=== PATIENT | male | born 1950 | race Caucasian/White ===

== ENCOUNTER 2020-04-12 04:10 | Inpatient (IN) | payer OTHER, MEDICAID ==
[2020-04-12] VITALS (16 sets, daily range): BP systolic 107–142
[~2020-04-12] VITALS: Ht 190.5 cm; Wt 73.6 kg
[2020-04-12 05:20] LABS: BASOPHILS % (AUTO) 0.2 % (0.0-2.0); HEMATOCRIT 27.2 % (36-54); HEMOGLOBIN 9.2 g/dL (14.0-18.0); LYMPHOCYTES # (AUTO) 0.4 K/uL (1.0-5.5); LYMPHOCYTES % (AUTO) 3.7 % (20.5-51.5); MEAN CORPUSCULAR HEMOGLOBIN 31 pg (27-31); MEAN CORPUSCULAR HGB CONC 34 % (32-36); MEAN CORPUSCULAR VOLUME 92 fL (79.0-98.0); MONOCYTES # (AUTO) 0.6 K/uL (0.0-1.0); MONOCYTES % (AUTO) 5.7 % (1.7-9.3); NEUTROPHILS # (AUTO) 9.3 K/uL (1.8-7.7); NEUTROPHILS % (AUTO) 90.4 % (40.0-70.0); PLATELET COUNT (AUTO) 150 K/uL (130-430); RED BLOOD CELL COUNT(AUTO) 2.96 MIL/uL (4.2-6.2); RED CELL DISTRIBUTION WIDTH 14.4 % (9.0-15.0); WHITE BLOOD COUNT (AUTO) 10.3 K/uL (4.8-10.8)
[2020-04-12 05:24] LABS: CALCIUM 9.2 mg/dL (8.4-11.0); POTASSIUM 5.1 mmol/L (3.5-5.1)
[2020-04-12 05:31] LABS: ALBUMIN 2.7 g/dL (3.4-4.8); TOTAL BILIRUBIN 0.8 mg/dL (0.0-1.0)
[2020-04-12 05:32] LABS: CREATININE 9.6 mg/dL (0.55-1.30)
[2020-04-12] MEDS ORDERED: D10W 1,000 ML IV SCH (05:45)
[2020-04-12] MEDS ORDERED: DEXTROSE 50% JECT 50 ML DISP.SYRIN IVP ONE ×3 (05:45→10:45)
[2020-04-12] MEDS ORDERED: FLUT16SP16 NS (06:10)
[2020-04-12] MEDS ORDERED: DOCU-144 PO (06:10)
[2020-04-12] MEDS ORDERED: PREDEYE1% EACH EYE (06:10)
[2020-04-12] MEDS ORDERED: METO-290 PO (06:10)
[2020-04-12] MEDS ORDERED: ACET-2165 PO (06:10)
[2020-04-12] MEDS ORDERED: CILO100T PO (06:10)
[2020-04-12] MEDS ORDERED: FOLI0.8T42 PO (06:10)
[2020-04-12] MEDS ORDERED: THOR25 PO (06:10)
[2020-04-12] MEDS ORDERED: LIP40 PO (06:10)
[2020-04-12] MEDS ORDERED: PROC5TAB12 PO (06:10)
[2020-04-12] MEDS ORDERED: FURO80TA86 PO (06:10)
[2020-04-12] MEDS ORDERED: NITSL SL (06:10)
[2020-04-12] MEDS ORDERED: AMLO5TAB4 PO (06:10)
[2020-04-12] MEDS ORDERED: PSYL1PAC8 PO (06:10)
[2020-04-12] MEDS ORDERED: ASPI-1153 PO (06:10)
[2020-04-12] MEDS ORDERED: CAT.1 PO (06:10)
[2020-04-12] MEDS ORDERED: CALC667T6 PO (06:10)
[2020-04-12] MEDS ORDERED: CARV25TA55 PO ×2 (06:10)
[2020-04-12] MEDS ORDERED: GABA-531 PO (06:10)
[2020-04-12] MEDS ORDERED: BISA10SU77 RC (06:10)
[2020-04-12] MEDS ORDERED: APIX5TAB4 PO (06:10)
[2020-04-12] MEDS ORDERED: DEXTROSE 50% JECT 50 ML DISP.SYRIN ONE ×3 (10:36→12:41)
[2020-04-12] MEDS ORDERED: D5W 1,000 ML IV PRN (10:39)
[2020-04-12] MEDS ORDERED: GLUCOSE 15 GM GEL (in 37.5 GM TUBE) PO PRN (10:45)
[2020-04-12] MEDS: DEXTROSE 50% JECT 50 ML DISP.SYRIN IVP PRN ×4 (12:24→17:13)
[2020-04-12] MEDS ORDERED: HYDROCORTISONE SOD SUCC 100 MG/2 ML VIAL IVP SCH ×2 (14:45→18:00)
[2020-04-12] MEDS ORDERED: HYDROCORTISONE SOD SUCC 100 MG/2 ML VIAL IVP ONE (15:00)
[2020-04-12] MEDS ORDERED: HYDROCORTISONE SOD SUCC 100 MG/2 ML VIAL ONE (15:17)
[2020-04-12] MEDS ORDERED: methylPREDNISolone SOD SUCC/PF 62.5 MG/ML VIAL IVP ONE (15:30)
[2020-04-12] MEDS: D10W 1,000 ML IV SCH ×2 (17:45→18:45)
[2020-04-12] MEDS ORDERED: methylPREDNISolone SOD SUCC/PF 62.5 MG/ML VIAL IVP SCH ×2 (18:00→22:00)
[2020-04-12 21:55] LABS: ALBUMIN 2.6 g/dL (3.4-4.8); BILIRUBIN,DIRECT 0.4 mg/dL (0.0-0.3); TOTAL BILIRUBIN 0.7 mg/dL (0.0-1.0)
[2020-04-13] VITALS (17 sets, daily range): BP systolic 110–158
[2020-04-13] MEDS ORDERED: HYDROCORTISONE SOD SUCC 100 MG/2 ML VIAL IVP SCH
[2020-04-13] MEDS ORDERED: methylPREDNISolone SOD SUCC/PF 62.5 MG/ML VIAL IVP SCH
[2020-04-13 06:25] LABS: CALCIUM 8.9 mg/dL (8.4-11.0); CREATININE 6.4 mg/dL (0.55-1.30); PHOSPHORUS 4.8 mg/dL (2.7-4.5); POTASSIUM 5.1 mmol/L (3.5-5.1); THYROID STIMULATING HORMONE 0.3 uIu/mL (0.36-3.74)
[2020-04-13 07:35] LABS: HEMATOCRIT 28.2 % (36-54); HEMOGLOBIN 9.4 g/dL (14.0-18.0); LYMPHOCYTES # (AUTO) 0.2 K/uL (1.0-5.5); LYMPHOCYTES % (AUTO) 2.1 % (20.5-51.5); MEAN CORPUSCULAR HEMOGLOBIN 31 pg (27-31); MEAN CORPUSCULAR HGB CONC 34 % (32-36); MEAN CORPUSCULAR VOLUME 91 fL (79.0-98.0); MONOCYTES % (AUTO) 0.6 % (1.7-9.3); NEUTROPHILS # (AUTO) 7.3 K/uL (1.8-7.7); NEUTROPHILS % (AUTO) 97.3 % (40.0-70.0); PLATELET COUNT (AUTO) 164 K/uL (130-430); RED BLOOD CELL COUNT(AUTO) 3.09 MIL/uL (4.2-6.2); RED CELL DISTRIBUTION WIDTH 14.2 % (9.0-15.0)
[2020-04-13 07:58] LABS: WHITE BLOOD COUNT (AUTO) 7.5 K/uL (4.8-10.8)
[2020-04-13] MEDS: NACL 0.9% 1,000 ML IV SCH (08:00)
[2020-04-13] MEDS: EPOETIN ALFA 10,000 UNITS/ML VIAL SUBCUT SCH (08:08)
[2020-04-13] MEDS ORDERED: INSULIN Lispro 100 UNITS/ML VIAL (humaLOG) SUBCUT ONE (09:45)
[2020-04-13] MEDS ORDERED: DEXTROSE 50% JECT 50 ML DISP.SYRIN IVP PRN (18:30)
[2020-04-13] MEDS: INSULIN LISPRO SLIDING SCALE 100 UNITS/ML VIAL (humaLOG) SUBCUT PRN (21:11)
[2020-04-14 00:10] VITALS: BP_SYST 145
[2020-04-14] MEDS: NACL 0.9% 1,000 ML IV SCH (00:30)
[2020-04-14] MEDS: INSULIN LISPRO SLIDING SCALE 100 UNITS/ML VIAL (humaLOG) SUBCUT PRN ×5 (03:37→21:34)
[2020-04-14 05:07] LABS: HEMOGLOBIN A1C 5.3 % (4.8-5.6)
[2020-04-14 07:00] VITALS: BP_SYST 132
[2020-04-14 08:00] VITALS: BP_SYST 132
[2020-04-14 08:06] LABS: CORTISOL (SERUM) 33.6 ug/dL (.)
[2020-04-14 10:08] LABS: CALCIUM 9.1 mg/dL (8.4-11.0); POTASSIUM 5.5 mmol/L (3.5-5.1)
[2020-04-14 10:16] LABS: CREATININE 8.19 mg/dL (0.55-1.30)
[2020-04-14 11:36] VITALS: BP_SYST 142
[2020-04-14] MEDS: NORMAL SALINE 5 ML DISP.SYRIN IVF SCH ×2 (14:00→21:32)
[2020-04-14 15:38] VITALS: BP_SYST 156
[2020-04-14 20:00] VITALS: BP_SYST 132
[2020-04-15 00:58] VITALS: BP_SYST 148
[2020-04-15] MEDS: NORMAL SALINE 5 ML DISP.SYRIN IVF SCH ×3 (06:00→20:51)
[2020-04-15 06:27] LABS: BASOPHILS % (AUTO) 0.1 % (0.0-2.0); EOSINOPHILS # (AUTO) 0.1 K/uL (0.0-0.4); EOSINOPHILS % (AUTO) 1.6 % (0.0-4.0); HEMATOCRIT 31.2 % (36-54); HEMOGLOBIN 10.6 g/dL (14.0-18.0); LYMPHOCYTES # (AUTO) 0.5 K/uL (1.0-5.5); MEAN CORPUSCULAR HEMOGLOBIN 31 pg (27-31); MEAN CORPUSCULAR HGB CONC 34 % (32-36); MEAN CORPUSCULAR VOLUME 90 fL (79.0-98.0); MONOCYTES # (AUTO) 0.9 K/uL (0.0-1.0); MONOCYTES % (AUTO) 11.7 % (1.7-9.3); NEUTROPHILS % (AUTO) 79.6 % (40.0-70.0); PLATELET COUNT (AUTO) 179 K/uL (130-430); RED BLOOD CELL COUNT(AUTO) 3.46 MIL/uL (4.2-6.2); RED CELL DISTRIBUTION WIDTH 13.9 % (9.0-15.0); WHITE BLOOD COUNT (AUTO) 7.5 K/uL (4.8-10.8)
[2020-04-15 07:33] LABS: CALCIUM 8.8 mg/dL (8.4-11.0); CREATININE 6.69 mg/dL (0.55-1.30); PHOSPHORUS 5.2 mg/dL (2.7-4.5); POTASSIUM 5.4 mmol/L (3.5-5.1)
[2020-04-15 08:00] VITALS: BP_SYST 163
[2020-04-15] MEDS ORDERED: SODIUM POLYSTYRENE SULFONATE 15 GM/60 ML UDBTL PO ONE ×2 (10:30→14:30)
[2020-04-15] MEDS: INSULIN LISPRO SLIDING SCALE 100 UNITS/ML VIAL (humaLOG) SUBCUT PRN ×3 (11:44→20:54)
[2020-04-15 12:31] VITALS: BP_SYST 154
[2020-04-15 16:07] VITALS: BP_SYST 155
[2020-04-15] MEDS: SEVELAMER CARBONATE 800 MG TABLET PO SCH (16:41)
[2020-04-15] MEDS ORDERED: SEVELAMER CARBONATE 800 MG TABLET PO SCH (18:00)
[2020-04-15 20:00] VITALS: BP_SYST 150
[2020-04-16 00:24] VITALS: BP_SYST 164
[2020-04-16] MEDS: NORMAL SALINE 5 ML DISP.SYRIN IVF SCH ×2 (05:25→15:01)
[2020-04-16 07:45] LABS: BASOPHILS % (AUTO) 0.1 % (0.0-2.0); EOSINOPHILS # (AUTO) 0.3 K/uL (0.0-0.4); EOSINOPHILS % (AUTO) 3.4 % (0.0-4.0); HEMATOCRIT 30.7 % (36-54); HEMOGLOBIN 10.4 g/dL (14.0-18.0); LYMPHOCYTES # (AUTO) 0.6 K/uL (1.0-5.5); LYMPHOCYTES % (AUTO) 7.7 % (20.5-51.5); MEAN CORPUSCULAR HEMOGLOBIN 31 pg (27-31); MEAN CORPUSCULAR HGB CONC 34 % (32-36); MEAN CORPUSCULAR VOLUME 91 fL (79.0-98.0); MONOCYTES # (AUTO) 1.1 K/uL (0.0-1.0); MONOCYTES % (AUTO) 13.4 % (1.7-9.3); NEUTROPHILS % (AUTO) 75.4 % (40.0-70.0); PLATELET COUNT (AUTO) 181 K/uL (130-430); RED CELL DISTRIBUTION WIDTH 14.2 % (9.0-15.0); WHITE BLOOD COUNT (AUTO) 7.9 K/uL (4.8-10.8)
[2020-04-16 08:00] VITALS: BP_SYST 164
[2020-04-16 08:23] LABS: ALBUMIN 2.5 g/dL (3.4-4.8); CALCIUM 8.4 mg/dL (8.4-11.0); PHOSPHORUS 5.4 mg/dL (2.7-4.5); POTASSIUM 5.6 mmol/L (3.5-5.1); TOTAL BILIRUBIN 0.8 mg/dL (0.0-1.0)
[2020-04-16 08:49] LABS: CREATININE 8.57 mg/dL (0.55-1.30)
[2020-04-16] MEDS: SEVELAMER CARBONATE 800 MG TABLET PO SCH ×3 (11:30→16:23)
[2020-04-16] MEDS: EPOETIN ALFA 10,000 UNITS/ML VIAL SUBCUT SCH (11:30)
[2020-04-16] MEDS: INSULIN LISPRO SLIDING SCALE 100 UNITS/ML VIAL (humaLOG) SUBCUT PRN ×2 (11:39→16:25)
[2020-04-16 12:43] VITALS: BP_SYST 157
[2020-04-16 15:49] VITALS: BP_SYST 149
== END 2020-04-16 17:50 | DRG 637 ==
LOC: SED 04:10 → SIC 08:44 → SMU 04-13 15:05
PROVIDERS: ADMIT Internal Medicine Hospice and Palliative Medicine; ATTEND Internal Medicine Hospice and Palliative Medicine
PROC: 5A1D70Z Performance of Urinary Filtration, Intermittent, Less than 6 Hours Per Day (ICD-10-PCS; 2020-04-12)
PROC: 5A1D70Z Performance of Urinary Filtration, Intermittent, Less than 6 Hours Per Day (ICD-10-PCS; principal; 2020-04-14)
PROC: 5A1D70Z Performance of Urinary Filtration, Intermittent, Less than 6 Hours Per Day (ICD-10-PCS; 2020-04-16)
DX: E11.649 Type 2 diabetes mellitus with hypoglycemia without coma (principal); G93.41 Metabolic encephalopathy; E43 Unspecified severe protein-calorie malnutrition; I13.2 Hypertensive heart and chronic kidney disease with heart failure and with stage 5 chronic kidney disease, or end stage renal disease; E87.1 Hypo-osmolality and hyponatremia; N18.6 End stage renal disease; Z99.2 Dependence on renal dialysis; D63.1 Anemia in chronic kidney disease; E11.22 Type 2 diabetes mellitus with diabetic chronic kidney disease; E11.51 Type 2 diabetes mellitus with diabetic peripheral angiopathy without gangrene; E78.5 Hyperlipidemia, unspecified; E83.39 Other disorders of phosphorus metabolism; D64.9 Anemia, unspecified; E87.5 Hyperkalemia; I50.9 Heart failure, unspecified; M47.9 Spondylosis, unspecified; Z79.84 Long term (current) use of oral hypoglycemic drugs; Z79.01 Long term (current) use of anticoagulants; Z79.82 Long term (current) use of aspirin; Z79.899 Other long term (current) drug therapy; Z68.20 Body mass index [BMI] 20.0-20.9, adult
CPT/HCPCS: 36415; 70450-TC; 80048; 80053; 80076; 82533; 82962; 83036; 83525; 83735-TC; 83880; 84100-TC; 84443-TC; 84484; 84681; 85025; 87081; 90935; 95816; 96361; 96374; 96376; 97110-GP; 97112-GP; 97116-GP; 99285; J0885; J1720; J2930; J7030